=== PATIENT | female | born 1995 | race African-American/Black ===

== ENCOUNTER 2019-10-21 13:53 | Emergency (ER) | payer MEDICAID ==
[~2019-10-21] VITALS: Ht 177.8 cm; Wt 106.2 kg
[~2019-10-21 13:53] MED LIST: ALBUTEROL INH
[2019-10-21 15:52] LABS: CLARITY URINE CLOUDY (CLEAR); COLOR URINE YELLOW (YELLOW); KETONES URINE TRACE (NEGATIVE); LEUKOCYTE ESTERASE URINE TRACE (NEGATIVE); NITRITE URINE NEGATIVE (NEGATIVE); OCCULT BLOOD URINE NEGATIVE (NEGATIVE); PH URINE 7.5 (4.5-8.0); PROTEIN URINE TRACE (NEGATIVE); SPECIFIC GRAVITY URINE 1.036 (1.005-1.030)
[2019-10-21 16:22] LABS: BASOPHILS % 1.2 % (0.0-2.0); EOSINOPHILS % 1.8 % (0.0-5.0); HEMATOCRIT. 33.4 % (36.0-48.0); HEMOGLOBIN. 10.1 g/dL (12.0-16.0); LYMPHOCYTES % 20.8 % (20.0-50.0); MEAN CORPUSCULAR HEMOGLOBIN 23.6 pg (28.0-32.0); MEAN CORPUSCULAR VOLUME 77.9 fL (81.0-99.0); MEAN PLATELET VOLUME 8.3 fl (7.4-10.4); MONOCYTES % 8.7 % (2.0-8.0); NEUTROPHILS % 67.5 % (40.0-76.0); PLATELET 275 x1000/uL (130-400); RED BLOOD CELL COUNT 4.29 mill/uL (4.2-5.4); RED CELL DISTRIBUTION WIDTH 15.2 % (11.6-14.6)
[2019-10-21 16:28] LABS: CHLORIDE 108 mEq/L (98-107); PROTHROMBIN TIME 10.6 sec (9.6-11.0)
[2019-10-21 16:40] LABS: HCG SCREEN NEGATIVE
[2019-10-21] MEDS ORDERED: HYDROCODONE/ACETAMINOPHEN 5/325MG TABLET PO ONE (17:00)
[2019-10-21] MEDS ORDERED: SODIUM CHLORIDE 0.9% 1,000 ML IV ONE (17:25)
[2019-10-21] MEDS ORDERED: ONDANSETRON HCL 4MG/2ML INJ IV NR (17:30)
[2019-10-21 19:52] VITALS: BP 135/81
[2019-10-21] MEDS ORDERED: IOHEXOL-300 100 ML BOTTLE ONE (20:40)
== END 2019-10-21 19:57 | disposition home or self-care (01) ==
LOC: ER 13:53
DX: N39.0 Urinary tract infection, site not specified (principal); R11.2 Nausea with vomiting, unspecified; R19.7 Diarrhea, unspecified; J45.909 Unspecified asthma, uncomplicated; Z90.49 Acquired absence of other specified parts of digestive tract
CPT/HCPCS: 36415; 74177; 80053; 81003; 81025; 83690; 84703; 85025; 85610; 96361; 96374; 99284; J2405; Q9967

== ENCOUNTER 2020-04-25 18:31 | Observation (INO) | payer MEDICAID ==
[~2020-04-25] VITALS: Ht 180.3 cm; Wt 103.4 kg
[2020-04-25] MEDS ORDERED: CITRIC ACID/SODIUM CITRATE SOLN 30ML UDC PO NR (19:00)
[2020-04-25] MEDS ORDERED: SODIUM CHLORIDE 0.9% 1,000 ML IV SCH (19:00)
[2020-04-25 19:43] LABS: HEMATOCRIT 28.8 % (36.0-48.0); HEMOGLOBIN 9.8 g/dL (12.0-16.0); MEAN CORPUSCULAR HEMOGLOBIN 28.9 pg (28.0-32.0); MEAN CORPUSCULAR VOLUME 84.8 fL (81.0-99.0); PLATELET 217 x1000/uL (130-400); RED CELL DISTRIBUTION WIDTH 14.4 % (11.6-14.6)
[2020-04-25 19:49] LABS: CHLORIDE 107 mEq/L (98-107)
[2020-04-25] MEDS ORDERED: SODIUM CHLORIDE 0.9% 100 ML IV ONE (20:00)
[2020-04-25] MEDS ORDERED: FOLIC ACID 1 MG, THIAMINE HCL 100 MG, MVI, ADULT NO.1 10 ML in SODIUM CHLORIDE 0.9% 1,0... IV ONE ×4 (20:00)
[2020-04-25 21:46] LABS: CLARITY URINE CLEAR (CLEAR); COLOR URINE YELLOW (YELLOW); KETONES URINE NEGATIVE (NEGATIVE); LEUKOCYTE ESTERASE URINE TRACE (NEGATIVE); NITRITE URINE NEGATIVE (NEGATIVE); OCCULT BLOOD URINE NEGATIVE (NEGATIVE); PH URINE 7.5 (4.5-8.0); PROTEIN URINE NEGATIVE (NEGATIVE); SPECIFIC GRAVITY URINE 1.012 (1.005-1.030); UROBILINOGEN URINE 0.2 E.U./dL (0.2-1.0)
[2020-04-25 22:05] LABS: *AMPHETAMINES SCREEN URINE NEGATIVE (NEGATIVE); *BARBITURATES SCREEN URINE NEGATIVE (NEGATIVE); *BENZODIAZEPINES SCREEN URINE NEGATIVE (NEGATIVE); *COCAINE SCREEN URINE NEGATIVE (NEGATIVE)
[2020-04-25 22:06] LABS: CANNABINOID URINE SCREEN NEGATIVE (NEGATIVE); METHADONE URINE SCREEN NEGATIVE (NEGATIVE); OPIATES URINE SCREEN NEGATIVE (NEGATIVE); PHENCYCLIDINE URINE SCREEN NEGATIVE (NEGATIVE)
[2020-04-25] MEDS ORDERED: PNV1TABL50 PO (22:18)
== END 2020-04-25 23:00 | disposition home or self-care (01) ==
LOC: 8 EST LDRP 18:31
PROVIDERS: ADMIT Specialist; ATTEND Specialist
DX: O26.892 Other specified pregnancy related conditions, second trimester (principal); R10.10 Upper abdominal pain, unspecified; R10.13 Epigastric pain; K59.00 Constipation, unspecified; Z3A.21 21 weeks gestation of pregnancy; Z79.899 Other long term (current) drug therapy
CPT/HCPCS: 36415; 76700; 76805; 80053; 80305; 81003; 85027; 96365; 99281; G0378; J3411; J3490; J7030

== ENCOUNTER 2020-05-30 12:00 | Emergency (ER) | payer MEDICAID ==
[~2020-05-30] VITALS: Ht 180.3 cm; Wt 106.0 kg
[~2020-05-30 12:00] MED LIST changes: +PNV1TABL50 PO
[2020-05-30 15:00] VITALS: BP 129/72
[2020-05-30 15:30] LABS: CLARITY URINE CLEAR (CLEAR); COLOR URINE YELLOW (YELLOW); KETONES URINE NEGATIVE (NEGATIVE); LEUKOCYTE ESTERASE URINE 1+ (NEGATIVE); NITRITE URINE NEGATIVE (NEGATIVE); OCCULT BLOOD URINE NEGATIVE (NEGATIVE); PROTEIN URINE TRACE (NEGATIVE); SPECIFIC GRAVITY URINE 1.022 (1.005-1.030)
[2020-05-30 15:41] LABS: *AMPHETAMINES SCREEN URINE NEGATIVE (NEGATIVE); *BARBITURATES SCREEN URINE NEGATIVE (NEGATIVE); *BENZODIAZEPINES SCREEN URINE NEGATIVE (NEGATIVE); *COCAINE SCREEN URINE NEGATIVE (NEGATIVE); METHADONE URINE SCREEN NEGATIVE (NEGATIVE); OPIATES URINE SCREEN NEGATIVE (NEGATIVE)
[2020-05-30 15:42] LABS: CANNABINOID URINE SCREEN NEGATIVE (NEGATIVE); PHENCYCLIDINE URINE SCREEN NEGATIVE (NEGATIVE)
== END 2020-05-30 15:30 | disposition home or self-care (01) ==
LOC: ER 12:00
DX: O23.12 Infections of bladder in pregnancy, second trimester (principal); Z20.828 Contact with and (suspected) exposure to other viral communicable diseases; O99.512 Diseases of the respiratory system complicating pregnancy, second trimester; J45.909 Unspecified asthma, uncomplicated; O26.892 Other specified pregnancy related conditions, second trimester; Z90.49 Acquired absence of other specified parts of digestive tract; Z3A.26 26 weeks gestation of pregnancy
CPT/HCPCS: 80305; 81003; 81025; 99283; C9803; U0003

== ENCOUNTER 2020-06-20 17:22 | Observation (INO) | payer MEDICAID, OTHER ==
[~2020-06-20] VITALS: Ht 180.3 cm; Wt 108.0 kg
[2020-06-20] MEDS ORDERED: ACETAMINOPHEN 650MG SUPP PR NR (19:00)
[2020-06-20] MEDS ORDERED: ONDANSETRON 4MG ODT PO PRN (19:15)
[2020-06-20] MEDS ORDERED: ONDANSETRON HCL 4MG/2ML INJ IV NR (19:30)
[2020-06-20 20:31] LABS: CHLORIDE 105 mEq/L (98-107)
[2020-06-20 20:41] LABS: HEMATOCRIT 29.3 % (36.0-48.0); HEMOGLOBIN 9.6 g/dL (12.0-16.0); MEAN CORPUSCULAR HEMOGLOBIN 26.7 pg (28.0-32.0); MEAN CORPUSCULAR VOLUME 81.2 fL (81.0-99.0); PLATELET 204 x1000/uL (130-400); RED CELL DISTRIBUTION WIDTH 13.2 % (11.6-14.6)
[2020-06-20] MEDS ORDERED: DEXT 5%/LACTATED RINGERS 1,000 ML IV SCH (20:45)
== END 2020-06-20 22:30 | disposition home or self-care (01) ==
LOC: 8EST NSY 17:22 → 8 EST A/PP 18:20
PROVIDERS: ADMIT Obstetrics & Gynecology; ATTEND Obstetrics & Gynecology
DX: O99.89 Other specified diseases and conditions complicating pregnancy, childbirth and the puerperium (principal); O99.343 Other mental disorders complicating pregnancy, third trimester; M79.10 Myalgia, unspecified site; F41.0 Panic disorder [episodic paroxysmal anxiety]; R51 Headache; Z3A.29 29 weeks gestation of pregnancy
CPT/HCPCS: 36415; 76805; 76817; 76818; 80053; 85027; 96374; G0378; J2405; J7121

== ENCOUNTER 2020-06-30 18:27 | Emergency (ER) | payer MEDICAID ==
[~2020-06-30] VITALS: Ht 167.6 cm; Wt 120.0 kg
[2020-06-30 18:34] VITALS: BP 117/79
[2020-06-30] MEDS ORDERED: ACETAMINOPHEN 325MG TABLET PO PRN (19:00)
[2020-06-30 19:14] LABS: BG BASE EXCESS -3.6 mmol/L (-2.0-2.0); BG CARBOXYHEMOGLOBIN 0.2 % (0.5-1.5); BG FRACTION INSPIRED OXYGEN 21; BG METHEMOGLOBIN 0.1 % (0.0-1.5); BG OXYHEMOGLOBIN 97.7 % (94.0-97.0); BG PCO2 26.5 mmHg (35.0-45.0); BG PH 7.473 (7.350-7.450); BG PO2 113.7 mmHg (75.0-100.0); BG SAMPLE SITE RIGHT RADIAL; BG TOTAL HEMOGLOBIN 10.2 g/dL (12.0-18.0); BG VENT MODE ROOM AIR
[2020-06-30 19:15] LABS: BASOPHILS % 0.4 % (0.0-2.0); EOSINOPHILS % 0.4 % (0.0-5.0); HEMATOCRIT. 29.2 % (36.0-48.0); HEMOGLOBIN. 9.6 g/dL (12.0-16.0); LYMPHOCYTES % 15.8 % (20.0-50.0); MEAN CORPUSCULAR HEMOGLOBIN 26.8 pg (28.0-32.0); MEAN CORPUSCULAR VOLUME 81.7 fL (81.0-99.0); MEAN PLATELET VOLUME 8.9 fl (7.4-10.4); NEUTROPHILS % 76.4 % (40.0-76.0); PLATELET 213 x1000/uL (130-400); RED BLOOD CELL COUNT 3.57 mill/uL (4.2-5.4); RED CELL DISTRIBUTION WIDTH 13.6 % (11.6-14.6)
[2020-06-30 19:21] LABS: CHLORIDE 109 mEq/L (98-107)
[2020-06-30] MEDS ORDERED: POTASSIUM CHLORIDE 20MEQ TABLET SR PO ONE ×2 (19:45→20:45)
[2020-06-30 19:46] LABS: B-HCG QUANTITATIVE 1024 mIU/mL (<3)
[2020-06-30 20:30] LABS: CLARITY URINE CLEAR (CLEAR); COLOR URINE DK YELLOW (YELLOW); KETONES URINE TRACE (NEGATIVE); LEUKOCYTE ESTERASE URINE 1+ (NEGATIVE); NITRITE URINE NEGATIVE (NEGATIVE); OCCULT BLOOD URINE NEGATIVE (NEGATIVE); PROTEIN URINE NEGATIVE (NEGATIVE); SPECIFIC GRAVITY URINE 1.021 (1.005-1.030)
[2020-06-30] MEDS ORDERED: NITROFURANTOIN 100MG M/M CAPSULE PO ONE (20:45)
== END 2020-07-01 | disposition short-term general hospital (02) ==
LOC: ER 18:32
DX: O23.33 Infections of other parts of urinary tract in pregnancy, third trimester (principal); O99.513 Diseases of the respiratory system complicating pregnancy, third trimester; Z3A.32 32 weeks gestation of pregnancy
CPT/HCPCS: 36415; 36600; 71045; 80053; 81003; 82375; 82805; 84702; 85025; 93005; 99285

== ENCOUNTER 2020-07-23 17:36 | Observation (INO) | payer MEDICAID ==
[~2020-07-23] VITALS: Ht 180.3 cm; Wt 108.9 kg
[2020-07-23] MEDS ORDERED: ACETAMINOPHEN WITH CODEINE 300/30MG TABLET PO NR (20:00)
[2020-07-23 20:14] VITALS: BP 123/73
== END 2020-07-23 20:45 | disposition home or self-care (01) ==
LOC: 8 EST LDRP 17:36
PROVIDERS: ADMIT Obstetrics & Gynecology; ATTEND Obstetrics & Gynecology
DX: O26.893 Other specified pregnancy related conditions, third trimester (principal); R10.30 Lower abdominal pain, unspecified; O62.9 Abnormality of forces of labor, unspecified; Z3A.34 34 weeks gestation of pregnancy
CPT/HCPCS: 59025; G0378; 99281

== ENCOUNTER 2020-08-03 16:50 | Observation (INO) | payer MEDICAID ==
[~2020-08-03] VITALS: Ht 175.3 cm; Wt 109.8 kg
[2020-08-03 18:02] LABS: CLARITY URINE CLEAR (CLEAR); COLOR URINE YELLOW (YELLOW); KETONES URINE NEGATIVE (NEGATIVE); LEUKOCYTE ESTERASE URINE 3+ (NEGATIVE); NITRITE URINE NEGATIVE (NEGATIVE); OCCULT BLOOD URINE NEGATIVE (NEGATIVE); PROTEIN URINE NEGATIVE (NEGATIVE); SPECIFIC GRAVITY URINE 1.013 (1.005-1.030)
[2020-08-03] MEDS ORDERED: AMOXICILLIN/POTASSIUM CLAVULANATE 875/125MG TAB PO NR (18:45)
== END 2020-08-03 19:00 | disposition home or self-care (01) ==
LOC: 8 EST LDRP 16:50
PROVIDERS: ADMIT Obstetrics & Gynecology; ATTEND Obstetrics & Gynecology
DX: O99.89 Other specified diseases and conditions complicating pregnancy, childbirth and the puerperium (principal); M54.5 Low back pain; O26.893 Other specified pregnancy related conditions, third trimester; R10.9 Unspecified abdominal pain; Z3A.35 35 weeks gestation of pregnancy
CPT/HCPCS: 59025; 81003; G0378; 99281

== ENCOUNTER 2020-08-07 12:18 | Inpatient (IN) | payer MEDICAID ==
[~2020-08-07] VITALS: Ht 180.3 cm; Wt 112.0 kg
[~2020-08-07 12:18] MED LIST changes: -ALBUTEROL INH
[2020-08-07] MEDS ORDERED: DEXT 5%/LR + PITOCIN 20UNITS/L 1,000 ML IV SCH ×2 (13:05→23:46)
[2020-08-07] MEDS ORDERED: CARBOPROST TROMETHAMINE 250 MCG/ML AMPUL IM PRN (13:15)
[2020-08-07] MEDS ORDERED: METHYLERGONOVINE MALEATE 0.2 MG/ML IM PRN (13:15)
[2020-08-07] MEDS ORDERED: NALOXONE HCL 0.4 MG/ML 1ML VIAL IM PRN (13:15)
[2020-08-07] MEDS ORDERED: MISOPROSTOL 100MCG TABLET VG PRN (13:15)
[2020-08-07] MEDS ORDERED: BUTORPHANOL TARTRATE 2 MG/ML VIAL IV PRN (13:15)
[2020-08-07] MEDS ORDERED: LIDOCAINE HCL 1% 20ML VIAL (Pyxis) INJ INFIL PRN (13:15)
[2020-08-07] MEDS ORDERED: AMPICILLIN 2,000 MG in SODIUM CHLORIDE 0.9% 100 ML IV SCH (13:30)
[2020-08-07] MEDS ORDERED: LIDOCAINE HCL 2%/EPINEPHRINE 1:100,000 20 ML VIAL INFIL ONE (15:32)
[2020-08-07 15:51] LABS: BASOPHILS % 0.8 % (0.0-2.0); EOSINOPHILS % 0.7 % (0.0-5.0); HEMATOCRIT. 31.5 % (36.0-48.0); MEAN CORPUSCULAR HEMOGLOBIN 24.6 pg (28.0-32.0); MEAN CORPUSCULAR VOLUME 77.8 fL (81.0-99.0); MEAN PLATELET VOLUME 10.2 fl (7.4-10.4); MONOCYTES % 9.9 % (2.0-8.0); NEUTROPHILS % 72.6 % (40.0-76.0); PLATELET 228 x1000/uL (130-400); RED BLOOD CELL COUNT 4.05 mill/uL (4.2-5.4); RED CELL DISTRIBUTION WIDTH 15.1 % (11.6-14.6)
[2020-08-07 16:00] LABS: CLARITY URINE CLEAR (CLEAR); COLOR URINE YELLOW (YELLOW); KETONES URINE NEGATIVE (NEGATIVE); LEUKOCYTE ESTERASE URINE TRACE (NEGATIVE); NITRITE URINE NEGATIVE (NEGATIVE); OCCULT BLOOD URINE NEGATIVE (NEGATIVE); PROTEIN URINE TRACE (NEGATIVE); SPECIFIC GRAVITY URINE 1.022 (1.005-1.030)
[2020-08-07 16:05] LABS: INR 0.9; PARTIAL THROMBOPLASTIN TIME 25.9 sec (23.4-31.0); PROTHROMBIN TIME 9.6 sec (9.6-11.0)
[2020-08-07 16:12] LABS: *BARBITURATES SCREEN URINE NEGATIVE (NEGATIVE)
[2020-08-07 16:13] LABS: *AMPHETAMINES SCREEN URINE NEGATIVE (NEGATIVE); *BENZODIAZEPINES SCREEN URINE NEGATIVE (NEGATIVE); *COCAINE SCREEN URINE NEGATIVE (NEGATIVE); METHADONE URINE SCREEN NEGATIVE (NEGATIVE); OPIATES URINE SCREEN NEGATIVE (NEGATIVE)
[2020-08-07 16:14] LABS: PHENCYCLIDINE URINE SCREEN NEGATIVE (NEGATIVE)
[2020-08-07 16:23] LABS: CANNABINOID URINE SCREEN PRESUMTIVE POSITIVE (NEGATIVE)
[2020-08-07] MEDS ORDERED: MISOPROSTOL 100MCG TABLET PO SCH (17:00)
[2020-08-07 17:59] LABS: HEPATITIS B SURFACE ANTIGEN NEGATIVE
[2020-08-07] MEDS ORDERED: AMPICILLIN 1,000 MG in SODIUM CHLORIDE 0.9% 50 ML IV SCH (20:00)
[2020-08-07] MEDS ORDERED: ROPIVACAINE HCL/PF EPIDURAL 200 ML EPI ONE (20:09)
[2020-08-07] MEDS ORDERED: ROPIVACAINE HCL/PF EPIDURAL 200 ML EPI SCH (20:15)
[2020-08-07] MEDS: LACTATED RINGERS 1,000 ML IV SCH ×2 (20:35→22:30)
[2020-08-07] MEDS ORDERED: FENTANYL CITRATE/PF 50MCG/ML 2ML VIAL ONE (20:58)
[2020-08-07] MEDS ORDERED: DEXT 5%/LR + PITOCIN 20UNITS/L 1,000 ML IV ONE (21:42)
[2020-08-08] MEDS ORDERED: IBUPROFEN 400MG TABLET PO PRN
[2020-08-08] MEDS ORDERED: GLYCERIN/WITCH HAZEL LEAF MEDICATED PAD TOP PRN
[2020-08-08] MEDS ORDERED: LANOLIN OINT 7GM TUBE TOP PRN
[2020-08-08] MEDS ORDERED: HEMORRHOIDAL SUPP PR PRN
[2020-08-08] MEDS ORDERED: DIPHENHYDRAMINE 25MG CAPSULE PO PRN
[2020-08-08] MEDS ORDERED: BISACODYL 10MG SUPP PR PRN
[2020-08-08] MEDS ORDERED: BENZOCAINE/LANOLIN/ALOE VERA SPRAY TOP PRN
[2020-08-08] MEDS ORDERED: METHYLERGONOVINE MALEATE 0.2 MG/ML IM PRN
[2020-08-08 01:35] VITALS: BP 120/76
[2020-08-08 02:05] VITALS: BP 124/80
[2020-08-08] MEDS: IBUPROFEN 800MG TABLET PO PRN ×2 (03:42→22:02)
[2020-08-08 04:00] VITALS: BP 103/81
[2020-08-08 06:20] LABS: BASOPHILS % 0.7 % (0.0-2.0); EOSINOPHILS % 0.1 % (0.0-5.0); HEMATOCRIT. 29.6 % (36.0-48.0); HEMOGLOBIN. 9.3 g/dL (12.0-16.0); LYMPHOCYTES % 9.8 % (20.0-50.0); MEAN CORPUSCULAR HEMOGLOBIN 24.2 pg (28.0-32.0); MEAN CORPUSCULAR VOLUME 76.8 fL (81.0-99.0); MEAN PLATELET VOLUME 9.3 fl (7.4-10.4); MONOCYTES % 7.5 % (2.0-8.0); NEUTROPHILS % 81.9 % (40.0-76.0); PLATELET 207 x1000/uL (130-400); RED BLOOD CELL COUNT 3.85 mill/uL (4.2-5.4); RED CELL DISTRIBUTION WIDTH 15.3 % (11.6-14.6)
[2020-08-08] MEDS: FERROUS SULFATE 325MG TABLET PO SCH ×2 (07:30→21:08)
[2020-08-08 08:00] VITALS: BP 111/80
[2020-08-08] MEDS: SIMETHICONE 80MG TABLET CHEW PO SCH ×2 (08:00→21:08)
[2020-08-08] MEDS: PRENATAL VIT/FE FUMARATE/FA TABLET PO SCH (09:00)
[2020-08-08] MEDS ORDERED: ACETAMINOPHEN WITH CODEINE 300/30MG TABLET PO PRN ×2 (11:00)
[2020-08-08] MEDS: MAGNESIUM/ALUMINUM HYDROXIDE/SIMETHICONE 30ML UDC PO PRN ×2 (11:12→21:07)
[2020-08-08] MEDS: KETOROLAC 30MG/ML VIAL IV PRN (11:12)
[2020-08-08 16:00] VITALS: BP 110/63
[2020-08-08 20:00] VITALS: BP 112/70
[2020-08-08] MEDS ORDERED: DOCUSATE SODIUM 100MG CAPSULE PO SCH (21:00)
[2020-08-09] MEDS: KETOROLAC 30MG/ML VIAL IV PRN (02:45)
[2020-08-09 04:00] VITALS: BP 109/74
[2020-08-09 07:39] VITALS: BP 119/77
[2020-08-09] MEDS: FERROUS SULFATE 325MG TABLET PO SCH (08:15)
[2020-08-09] MEDS: MAGNESIUM/ALUMINUM HYDROXIDE/SIMETHICONE 30ML UDC PO PRN (08:15)
[2020-08-09] MEDS: IBUPROFEN 800MG TABLET PO PRN (08:15)
[2020-08-09] MEDS: SIMETHICONE 80MG TABLET CHEW PO SCH (08:15)
[2020-08-09] MEDS: PRENATAL VIT/FE FUMARATE/FA TABLET PO SCH (08:15)
== END 2020-08-09 13:30 | disposition home or self-care (01) | DRG 560 ==
LOC: 8 EST LDRP 12:18 → OBSVTOIN 12:18 → 8EST 08-08 07:28
PROVIDERS: ADMIT Obstetrics & Gynecology; ATTEND Obstetrics & Gynecology
PROC: 10E0XZZ Delivery of Products of Conception, External Approach (ICD-10-PCS; principal; 2020-08-07)
PROC: 3E0R3BZ Introduction of Anesthetic Agent into Spinal Canal, Percutaneous Approach (ICD-10-PCS; 2020-08-07)
DX: O42.913 Preterm premature rupture of membranes, unspecified as to length of time between rupture and onset of labor, third trimester (principal); O60.14X0 Preterm labor third trimester with preterm delivery third trimester, not applicable or unspecified; Z37.0 Single live birth; Z3A.36 36 weeks gestation of pregnancy; Z91.19 Patient's noncompliance with other medical treatment and regimen; Z79.899 Other long term (current) drug therapy
CPT/HCPCS: 36415; 80305; 80349; 81003; 85025; 86592; 86703; 86762; 86850; 86900; 87340; 99281; J0290; J0595; J1885; J2590; J2795; J3010; J3490; J7050